=== PATIENT | female | born 1970 | race Caucasian/White ===

== ENCOUNTER 2020-05-09 21:24 | Emergency (ER) | payer OTHER ==
[~2020-05-09] VITALS: Ht 162.6 cm; Wt 90.7 kg
[~2020-05-09 21:24] MED LIST: ALLO300T PO; B CO PO; SITA100T PO; TIZA6CAP PO; [UNRECOGNIZED DRUG - CODE] PO
[2020-05-09 21:34] VITALS: BP 147/104
--- NOTE | 2020-05-09 21:44 | ER.PDOC ---
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 She is treated with bactrim and wound care with improvement in the infection. She knows that she needs to follow up with a surgeon for definitive treatment but is hesitant due to her prior surgical hx. She has recurrence in the infection over the last week. She is treating it at home with hydrogen peroxide washing and local wound care. No fever or chills. NO other complaints. She just wants refill of the antibiotics and will follow up with wound care Allergies: Coded Allergies: Penicillins (Verified Allergy, Unknown, 08/09/13) Home Meds No Active Prescriptions or Reported Meds Past Medical History Medical History: other Surgical History: , gastric bypass Social History Drug Use: none Reviewed Nursing Reviewed: Vital Signs, Abn. Noted, Nursing Assessment Constitutional: no symptoms reported EENTM: no symptoms reported Respiratory: no symptoms reported Cardiovascular: no symptoms reported Gastrointestinal: no symptoms reported Skin: see HPI Psychiatric/Neurological: no symptoms reported All Other Systems: Reviewed and Negative Physical Exam General Appearance: alert, no distress (localized area to abdominal wall with ulceration within prior surgical scar. No active drainage. borders are well demarcated) Location: anterior, abdomen With: tenderness, well defined boarders, weeping Extremities: nml ROM EENT: eyes nml inspection, lips/gums nml Respiratory: no resp. distress, breath sounds nml CVS: heart sounds nml Abdomen: non-tender Results/Orders Results/Orders Vital Signs Date Time Temp Pulse Resp B/P (MAP) Pulse Ox O2 Delivery O2 Flow Rate FiO2 05/09/20 21:34 98.2 94 18 99 05/09/20 21:34 98.2 94 18 99 05/09/20 21:34 98.2 94 18 Progress Progress patient was offered further work up of the infection including labs and CT imaging. She declines as she would just like refill to control this flare and will follow up with her clinic for wound care and surgery referral. If she has any new or worsening sx she can return at any time ER DEPART Departure Time of Disposition: 22:03 Disposition: 01 HOME, SELF-CARE Impression: Primary Impression: Abdominal wall cellulitis Condition: Stable Referrals: PCP,UNKNOWN (PCP) PRIMARY CARE PROVIDER Scripts No Active Prescriptions or Reported Meds Comments bactrim DS BID for 14 days, mupirocin 2% ointment BID Duration or Time Spent with Pa: 15 REJI LUIS MD May 09, 2020 21:44
[2020-05-09] MEDS ORDERED: BACTRIM DS PO STA (21:48)
[2020-05-09] MEDS ORDERED: TORADOL ONE (21:57)
[2020-05-09] MEDS ORDERED: BACTRIM DS ONE (21:57)
[2020-05-09] MEDS ORDERED: TORADOL IM ONE (22:00)
--- NOTE | 2020-05-09 22:14 | NUR ---
Discharge instructions given to pt both verbally and written at this time. Pt verbalizes understanding of importance for medicatin regimen with prescribed medications, and importance of a follow up appointment with PCP in 3-5 days. Pt shows no s/s of acute distress, and has no questions or concerns. Pt ambulated to private auto at this time.
== END 2020-05-09 22:14 | disposition home or self-care (01) ==
LOC: ER 21:24
DX: L03.311 Cellulitis of abdominal wall (principal); Z88.0 Allergy status to penicillin; Z98.84 Bariatric surgery status
CPT/HCPCS: 96372; 99283; J1885

== ENCOUNTER 2020-05-22 18:49 | Emergency (ER) | payer OTHER ==
[~2020-05-22] VITALS: Ht 162.6 cm; Wt 90.7 kg
[2020-05-22 19:01] VITALS: BP 129/83
--- NOTE | 2020-05-22 19:45 | ER.PDOC ---
General Chief Complaint: Dyspnea/Respdistress Stated Complaint: TROUBLE BREATHING TRAVEL OUT OF US: No Time seen by MD: 19:10 Source: patient Exam Limitations: no limitations History of Present Illness Initial Comments This 50-year-old white female comes in with a complaint of having shortness of breath that started about 2 hours prior to arrival. Patient states that she has mild asthma and thought it was asthma attack. However, she sounds more like an anxiety attack than asthma. She stated that she was short of breath and started breathing faster and faster until the point where she got some numbness and tingling in her hands and her face. At that point she decided that she would come to the emergency department. Patient stated that she almost felt like she was going to pass out. I did advise that she should not be Driving her car to the emergency department if she feels like she is going to pass out.Patient does indicate that she has had some mild wheezing that she is heard over the past 2 days.She certainly not in any distress here. She stated that as she was coming here, she started feeling better. Timing/Duration: 1-3 hours Severity: moderate Associated Symptoms: shortness of breath Allergies: Coded Allergies: Penicillins (Verified Allergy, Unknown, 08/09/13) Home Meds No Active Prescriptions or Reported Meds Past Medical History Medical History: asthma, other Surgical History: , gastric bypass, other Family History Significant Family History: no pertinent family hx Social History Smoking: non-smoker Alcohol Use: occassionally Drug Use: none Review of Systems Respiratory: see HPI Skin: other (Patient has 1 chronic nonhealing wound on her abdomen that is been there since her abdominoplasty) All Other Systems: Reviewed and Negative Physical Exam General Appearance: No Apparent Distress, WD/WN EENT: eyes nml inspection, nml ENT inspection Neck: Non-Tender, Full Range of Motion, Supple Respiratory: chest non-tender, normal breath sounds, no respiratory distress, no accessory muscle use, wheezing, expiration, other (Patient had some very fine expiratory wheezes noted in the upper lobes only.) CVS: reg rate & rhythm, no murmur, no gallop, pulses nml Gastrointestinal: Normal Bowel Sounds, No Organomegaly, No Pulsatile Mass, Non Tender Extremities: Normal Range of Motion Neurologic/Psychiatric: escort blind II-XII NML as Tested, No Motor/Sensory Deficits, Alert, Normal Mood/Affect, Oriented x 3 Skin: Normal Color, Warm/Dry Lymphatic: No Adenopathy Results/Orders Results/Orders Vital Signs Date Time Temp Pulse Resp B/P (MAP) Pulse Ox O2 Delivery O2 Flow Rate FiO2 05/22/20 19:01 97.6 82 22 05/22/20 19:01 97.6 82 22 98 05/22/20 19:01 97.6 82 22 98 ER DEPART Departure Time of Disposition: 19:43 Disposition: 01 HOME, SELF-CARE Impression: Primary Impression: Anxiety attack Additional Impression: Asthma attack Condition: Stable Referrals: PCP,UNKNOWN (PCP) PRIMARY CARE PROVIDER Scripts No Active Prescriptions or Reported Meds Comments I will give patient albuterol MDI, 2 puffs 4 times a day as needed for wheezing. Duration or Time Spent with Pa: 15m Problem Qualifiers MANUEL NIELSON MD May 22, 2020 19:45
[2020-05-22 20:00] VITALS: BP 133/55
== END 2020-05-22 19:59 | disposition home or self-care (01) ==
LOC: ER 19:05
DX: F41.0 Panic disorder [episodic paroxysmal anxiety] (principal); J45.909 Unspecified asthma, uncomplicated; Z98.84 Bariatric surgery status; Z88.0 Allergy status to penicillin
CPT/HCPCS: 99283